=== PATIENT | female | born 1960 | race Caucasian/White ===

== ENCOUNTER 2017-02-01 08:23 | Emergency (ER) | payer OTHER ==
[2017-02-01 08:48] VITALS: BP 158/93
--- NOTE | 2017-02-01 09:45 | UC ---
Lower Extremity/Ankle HPI - HPI Summary HPI Summary: 3 WEEKS OF RIGHT CALF PAIN AND POSTERIOR RIGHT KNEE PAIN. FEELS LIKE THERE IS A "KNOT" THERE. LEG FEELS SWOLLEN. SAW DR. AVELAR AND GIVEN NAPROXEN WHICH IRRITATED HER STOMACH. HAS BEEN ICING AND ELEVATING WITH NO RELIEF. IS GOING TO BE SCHEDULED FOR A PARTIAL RIGHT KNEE REPLACEMENT SOON [employer] APPROVES IT, BUT THIS PAIN IS DIFFERENT. DENIES ANY RECENT TRAVEL, SURGERY OR HOSPITALIZATIONS. NO PERSONAL OR FAM HX OF BLOOD CLOT. - History of Current Complaint Chief Complaint: UCLowerExtremity Stated Complaint: LEG COMPLAINT Time Seen by Provider: 02/01/17 09:18 Hx Obtained From: Patient Onset/Duration: Gradual Onset, Lasting Weeks, Still Present Severity Initially: Moderate Severity Currently: Moderate Pain Intensity: 7 Pain Scale Used: 0-10 Numeric Aggravating Factor(s): Standing, Ambulation Alleviating Factor(s): Nothing Able to Bear Weight: Yes - Allergies/Home Medications Allergies/Adverse Reactions: Allergies Allergy/AdvReac Type Severity Reaction Status Date / Time Penicillin G Allergy Unknown Rash Verified 02/01/17 08:40 ENVIRONMENTAL/SEASONAL Allergy Congestion Uncoded 02/01/17 08:40 ALLERGIES PMH/Surg Hx/FS Hx/Imm Hx Previously Healthy: Yes - Surgical History Surgical History: Yes Surgery Procedure, Year, and Place: 2011 RIGHT CARPAL TUNNEL RELEASE, [facility]. LEFT [place] [facility] [place] TORN MENISCUS [place]PAIR[place] [facility] [place]. 05/2015 LEFT HAND CARPAL TUNNEL RELEASE, [facility] - Family History Known Family History: Positive: Hypertension - Social History Alcohol Use: None Substance Use Type: None Smoking Status (MU): Never Smoked Tobacco Have You Smoked in the Last Year: No Review of Systems Constitutional: Negative Skin: Negative Respiratory: Negative Cardiovascular: Negative Gastrointestinal: Negative Musculoskeletal: Calf Tenderness All Other Systems Reviewed And Are Negative: Yes Physical Exam Triage Information Reviewed: Yes Appearance: Well-Appearing, No Pain Distress, Well-Nourished Vital Signs: Initial Vital Signs Temp 99.7 F 02/01/17 08:41 Pulse 98 02/01/17 08:41 Resp 18 02/01/17 08:41 BP 158/93 02/01/17 08:41 Pulse Ox 100 02/01/17 08:41 Vital Signs Reviewed: Yes Eyes: Positive: Conjunctiva Clear ENT: Positive: Hearing grossly normal Neck: Positive: Supple Respiratory: Positive: No respiratory distress, No accessory muscle use Cardiovascular: Positive: Pulses Normal Abdomen Description: Positive: Soft Musculoskeletal: Positive: ROM Intact, No Edema, Other: - MILD RIGHT CALF TENDERNESS. NEG HOMANS. CALF CIRCUMFERENCE 47.5CM RIGHT CALF, 46CM LEFT CALF Neurological: Positive: Alert Psychological: Positive: Age Appropriate Behavior Skin: Negative: rashes Diagnostics - Radiology RLE US Xray Interpretation: No Acute Changes Radiology Interpretation Completed By: Radiologist Lower Extremity Course/Dx - Differential Dx/Diagnosis Provider Diagnoses: RIGHT LEG PAIN Discharge - Discharge Plan Condition: Stable Disposition: HOME Patient Education Materials: Leg Pain (ED) Referrals: France Tucker MD [Primary Care Provider] - If Needed Additional Instructions: NO BLOOD CLOT OR BAKERS CYST SEEN ON ULTRASOUND TODAY. UNCLEAR ETIOLOGY OF YOUR DISCOMFORT. TAKE OTC NSAIDS NEEDED FOR PAIN. KEEP YOUR ORTHO FOLLOW-UP. Leg pain, non-specific: We did not find a specific cause for your leg pain. But there's no sign of a serious problem at this time. Often the cause of the pain becomes obvious with time, or the pain simply goes away. The most common causes of unexplained leg pain are: Muscle irritation. Muscle fatigue, overuse, pressure on the muscle from sitting or lying in one position, or immune reaction to muscle tissue can cause pain. Cholesterol-lowering drugs (statins) can inflame muscles. Dehydration or mineral deficits: Low levels of potassium, salt, calcium, or magnesium can cause cramps or leg muscle pain. Diuretics (water pills) can cause this. Subtle injury. Strains or bruises that were so minor they weren't noticed can cause pain a day or two later. A "stress fracture" of a leg bone can be caused by overuse. "Anderson splints" is pain in the front of the lower leg caused by overuse or hard running. Nerve pain. Leg pain can be caused by disc disease in the back (sciatica or "pinched nerve") or by damage to nerves by diabetes, alcohol abuse, smoking, or vitamin deficiency. A bruise or pressure on a nerve can cause pain. Tendonitis. Inflammation of a tendon can cause leg pain. Sometimes it's not obvious which tendon is responsible. Varicose veins and post-phlebitic syndrome. Abnormal veins sometimes cause widespread leg aching, particularly after being up on your feet all day. Arthritis. Sometimes the pain of an inflamed joint is felt through a wide area. Restless legs. This is an uncomfortable tightness that builds in the legs, making you want to move them. Sometimes it's caused by medication. Blood clots. We found no sign of blood clots during your evaluation today. Clots in tiny veins may cause pain but be non-detectable. Vascular disease. Narrowed arteries can make your muscles run short of oxygen, causing pain with walking. Other serious causes but more rare causes of leg pain include infection, tumors, and bone degeneration. Rest as much as possible. Elevate your leg while resting. Gently stretch your leg muscles four times a day. Use [id number] pain medicine like acetaminophen or ibuprofen. Gentle compression like support hose or elastic bandages might help. Warm up your leg muscles before physical activity. Carefully control any underlying health problems such as diabetes, high blood pressure, heart failure, gout, or arthritis. Eliminate alcohol and tobacco. See the doctor if you have significant changes, such as swelling, redness, fever, increasing pain, numbness, or discoloration. IBUPROFEN MAX DOSE: 600MG (3 TABS) EVERY 6 HRS OR 800MG (4 TABS) EVERY 8 HRS TYLENOL MAX DOSE: 1000MG (2 EXTRA STRENGTH TABS) EVERY 8 HRS
--- NOTE | 2017-02-01 10:18 | RAD ---
Indication: Right leg edema. Duplex Doppler sonography of the deep venous system of the right lower extremity deep venous system was performed. Bilaterally the common femoral veins appear patent and compressible. Right proximal greater saphenous vein, proximal deep femoral vein, femoral vein, popliteal vein, posterior tibial veins and peroneal veins appear patent and compressible. IMPRESSION: NO EVIDENCE OF DEEP VENOUS THROMBOSIS IS IDENTIFIED.
== END 2017-02-01 11:07 | disposition home or self-care (01) ==
LOC: UCEAST 08:23
DX: M79.604 Pain in right leg (principal); Z88.0 Allergy status to penicillin
CPT/HCPCS: 99211; G0463

== ENCOUNTER 2017-04-01 00:50 | Inpatient (IN) | payer OTHER ==
--- OUTSIDE RECORDS SUMMARY | 2017-07-29 05:56 | XMS REPORT ---
:1960 External Reference #:[id number] Author Organization [facility] Address [address] [address] Phone [phone] Care Team Providers Name Role Phone France Valadez MD Primary Care Physician Unavailable Payers Type Date Identification Numbers Payment Provider Subscriber Commercial Effective: Policy Number: [id number] [employer] Laura Banks 2014 Group Number: [id number] [address] PayID: [id number] [place] [address] Workers Effective: Policy Number: Julian Sanchez Compensation 2016 [id number] Xi Banks Onset: 2012 Group Name: Franky [phone] [address] PayID: [place] [address] Workers Expires: Policy Number: Julian Laura Compensation 2016 [id number] Xi Banks Onset: 2012 PayID: MARGA [address] [place] [address] Problems Date Description Provider Status Onset: 12/20/2014 Localized, primary osteoarthritis Snehal Tapia M.D. Active Onset: 02/17/2015 Snapping thumb syndrome Blessing Beckett M.D. Active Onset: 02/17/2015 Carpal tunnel syndrome of left wrist Blessing Beckett M.D. Active Onset: 11/23/2016 Osteochondritis dissecans Adrian Smith M.D. Active Family History Date Family Member(s) Problem(s) Comments General heart disease General diabetes General cancer Father Chronic Obstructive Pulmonary Disease (COPD) Father due to RI () Father due to COPD () Mother Breast Cancer Mother due to Heart Disease () Mother Bladder Cancer Mother Skin Cancer Mother Stroke Mother Heart Disease Siblings 5 1 brother 2 living sisters and 2 sisters. Brother has COPD Social History Type Date Description Comments Marital Status Single Lives With Alone Occupation lottery office manager Cigarette Use Never Smoked Cigarettes ETOH Use Denies alcohol use Smoking Patient has never smoked Recreational Drug Use Denies Drug Use Daily Caffeine Soda 2-3 can per week Daily Caffeine Regular Coffee x1 week iced or hot Exercise Type/Frequency Exercises rarely General Hx Text Do you follow special diet: no regular diet Do you have problems with snoring, daytime fatigue: yes occasional snoring, no daytime fatigue. Allergies, Adverse Reactions, Alerts Date Description Reaction Status Severity Comments 11/25/2012 Penicillin rash active Medications Medication Date Status Form Strength Qnty SIG Indications Ordering Provider Naproxen 09/23 Active Tablets 500mg 60tab 1 by M17.11 s mouth Luis, twice a M.D. day as needed Soolantra Active Cream 1% applied Unknown /0000 to face daily Prilosec OTC Active Tablets 20mg 1 by Unknown /0000 DR sophia every day prn ( started on and off for years) Naprosyn 07/27 Hx Tablets 500mg 60tab 1 tab po s bid prn Sophy, - pain M.D. 03/06 Ultracet 05/12 Hx Tablets 37.5-325m 30tab 1-2 tabs g s by mouth Sophy, - every 4-6 M.D. 03/06 hours needed pain Methylprednisolone 08/19 Hx Tablets 4mg 1pack take as Guy () directed Jeffrey, - M.D. 03/06 Naproxen 01/07 Hx Tablets 500mg 60tab 1 by Guy s mouth Jeffrey, - twice a M.D. 09/23 day needed Tramadol HCL 01/07 Hx Tablets 50mg 30tab 1-2 tabs s by mouth Jeffrey, - tid as M.D. 03/06 pain Dexalant 07/07 Hx Guy Patricia Murphy M.D. 03/06 Percocet 07/07 Hx Tablets 5-325mg 60tab take 1-2 s tabs po Jeffrey, - q4-6 M.DdArianna 06/24 hours pr pain Finacea Hx Unknown /0000 - 11/19 Qvar Hx Unknown /0000 - 03/06 Nasonex Hx Unknown /0000 - 03/06 Omeprazole Hx As Unknown /0000 Directed - 03/20 Medications Administered in Office Medication Date Status Form Strength Qnty SIG Indications Ordering Provider Technetium TC Administered Injection Jamila Banks, 99M 017 PA Tetrofosmin, Per Unit Dose Up To 40 Millicuries Inj, Administered Injection Eric Santos Regadenoson, 017 David Islas 0.1 MG Technetium TC Administered Injection Eric Santos 99M 017 David Islas Tetrofosmin, Per Unit Dose Up To 40 Millicuries Depomedrol Administered Injection Blessing 80MG Dante Beckett M.D. Synvisc Or Administered Injection Snehal Synvisc-One Dante Tapia M.D. Injection 1 MG Synvisc Or Administered Injection Snehal Synvisc-One Dante Tapia M.D. Injection 1 MG Synvisc Or Administered Injection Snehal Synvisc-One Dante Tapia M.D. Injection 1 MG Depomedrol Administered Injection Blessing 80MG Dante Beckett M.D. Depomedrol Administered Injection Blessing 80MG Suzanne Beckett M.D. Depomedrol Administered Injection Guy 80MG Suzanne Murphy M.D. Depomedrol Administered Injection Blessing 80MG Suzanne Beckett M.D. Vital Signs Date Vital Result Comment 07/10/2017 Height 62 inches 5'2" Heart Rate 83 /min BP Systolic 142 mmHg BP Diastolic 90 mmHg Respiratory Rate 16 /min Body Temperature 98.8 F Pain Level 2 06/24/2017 Height 62 inches 5'2" Weight 230.00 lb Heart Rate 88 /min BP Systolic Sitting 110 mmHg BP Diastolic Sitting 82 mmHg Respiratory Rate 14 /min O2 % BldC Oximetry 95 % BMI (Body Mass Index) 42.1 kg/m2 Neck Circumference in inches 14.5 05/16/2017 Height 62 inches 5'2" Weight 239.00 lb with shoes Heart Rate 72 /min BP Systolic Sitting 140 mmHg LA, large BP Diastolic Sitting 84 mmHg LA, large BMI (Body Mass Index) 43.7 kg/m2 Ejection Fraction 50%-55% 04/30/17 echo 03/21/2017 Height 62 inches 5'2" Weight 237.31 lb with shoes Heart Rate 116 /min stand and lying 100 reg with ectopy BP Systolic 120 mmHg Rue lg cuff BP Diastolic 90 mmHg Rue lg cuff BP Systolic Sitting 132 mmHg Lue lg cuff BP Diastolic Sitting 90 mmHg Lue lg cuff BP Systolic Standing 134 mmHg Lue lg cuff BP Diastolic Standing 90 mmHg Lue lg cuff Respiratory Rate 17 /min O2 % BldC Oximetry 94 % at room air BMI (Body Mass Index) 43.4 kg/m2 03/20/2017 Height 62 inches 5'2" Weight 239.00 lb Heart Rate 120 /min BP Systolic 140 mmHg BP Diastolic 96 mmHg Body Temperature 97.4 F Pain Level 5 BMI (Body Mass Index) 43.7 kg/m2 01/15/2017 Height 62 inches 5'2" Weight 230.00 lb Heart Rate 76 /min BP Systolic Recheck 132 mmHg BP Diastolic Recheck 88 mmHg Respiratory Rate 16 /min Body Temperature 98.0 F BMI (Body Mass Index) 42.1 kg/m2 12/20/2016 Height 62 inches 5'2" Weight 230.00 lb Heart Rate 76 /min BP Systolic Recheck 130 mmHg BP Diastolic Recheck 86 mmHg Respiratory Rate 16 /min Body Temperature 97.8 F BMI (Body Mass Index) 42.1 kg/m2 11/23/2016 Height 62 inches 5'2" Weight 230.00 lb Heart Rate 76 /min BP Systolic Recheck 128 mmHg BP Diastolic Recheck 84 mmHg Respiratory Rate 16 /min Body Temperature 97.9 F BMI (Body Mass Index) 42.1 kg/m2 03/07/2016 Heart Rate 98 /min BP Systolic 151 mmHg BP Diastolic 77 mmHg Pain Level 2 06/27/2015 Height 64 inches 5'4" Weight 230.00 lb BMI (Body Mass Index) 39.5 kg/m2 05/30/2015 Height 64 inches 5'4" Weight 230.00 lb Body Temperature 98.6 F Pain Level 0 BMI (Body Mass Index) 39.5 kg/m2 05/12/2015 Height 64 inches 5'4" Weight 230.00 lb Heart Rate 88 /min BP Systolic Sitting 146 mmHg BP Diastolic Sitting 83 mmHg Body Temperature 98.9 F BMI (Body Mass Index) 39.5 kg/m2 02/17/2015 Height 64 inches 5'4" Weight 230.00 lb Pain Level 1 BMI (Body Mass Index) 39.5 kg/m2 12/27/2014 Height 64 inches 5'4" Weight 230.00 lb Pain Level 6 BMI (Body Mass Index) 39.5 kg/m2 12/20/2014 Height 64 inches 5'4" Weight 230.00 lb Pain Level 4 BMI (Body Mass Index) 39.5 kg/m2 12/13/2014 Height 64 inches 5'4" Weight 230.00 lb Heart Rate 116 /min BP Systolic 136 mmHg BP Diastolic 79 mmHg Pain Level 6 BMI (Body Mass Index) 39.5 kg/m2 09/23/2014 Height 64 inches 5'4" Weight 230.00 lb Pain Level 10 BMI (Body Mass Index) 39.5 kg/m2 09/23/2014 Height 64 inches 5'4" Weight 230.00 lb Heart Rate 101 /min BP Systolic 145 mmHg BP Diastolic 92 mmHg Pain Level 7 BMI (Body Mass Index) 39.5 kg/m2 09/02/2014 Height 64 inches 5'4" Body Temperature 98.6 F Pain Level 6 08/19/2014 Height 64 inches 5'4" Weight 230.00 lb Body Temperature 98.5 F Pain Level 10 BMI (Body Mass Index) 39.5 kg/m2 07/12/2014 Height 64 inches 5'4" Weight 230.00 lb Pain Level 7 BMI (Body Mass Index) 39.5 kg/m2 04/12/2014 Height 64 inches 5'4" Weight 230.00 lb BP Systolic 124 mmHg BP Diastolic 101 mmHg BMI (Body Mass Index) 39.5 kg/m2 03/25/2014 Height 64 inches 5'4" Heart Rate 87 /min BP Systolic 156 mmHg BP Diastolic 86 mmHg 03/01/2014 Height 64 inches 5'4" Weight 230.00 lb Body Temperature 99.5 F BMI (Body Mass Index) 39.5 kg/m2 01/07/2014 Height 64 inches 5'4" Weight 230.00 lb Pain Level 7 BMI (Body Mass Index) 39.5 kg/m2 12/08/2013 Height 64 inches 5'4" Heart Rate 86 /min BP Systolic 140 mmHg BP Diastolic 90 mmHg 10/27/2013 Height 64 inches 5'4" Weight 230.00 lb Heart Rate 86 /min BP Systolic 144 mmHg BP Diastolic 100 mmHg BMI (Body Mass Index) 39.5 kg/m2 09/10/2013 Height 64 inches 5'4" Weight 230.00 lb Body Temperature 98.3 F BMI (Body Mass Index) 39.5 kg/m2 07/27/2013 Height 64 inches 5'4" Weight 230.00 lb Body Temperature 98.4 F BMI (Body Mass Index) 39.5 kg/m2 07/07/2013 Height 64 inches 5'4" Weight 230.00 lb Heart Rate 85 /min BP Systolic 161 mmHg BP Diastolic 93 mmHg BMI (Body Mass Index) 39.5 kg/m2 11/25/2012 Height 64 inches 5'4" Weight 225.00 lb Heart Rate 96 /min BP Systolic 146 mmHg BP Diastolic 90 mmHg BMI (Body Mass Index) 38.6 kg/m2 Results Test Date Test Result H/L Range Note Urinalysis Profile 03/20/2017 Urine Color Yellow 1 Urine Appearance Clear 1 Urine Specific [place] 1.006 Low 1.010-1.030 1 Urine pH 6.0 5-9 1 Urine Urobilinogen Negative Negative 1 Urine Ketones Negative Negative 1 Urine Protein Negative Negative 1 Urine Leukocytes Trace Negative 1 Urine Blood Negative Negative 1 Urine Nitrite Negative Negative 1 Urine Bilirubin Negative Negative 1 Urine Glucose Negative Negative 1 Urine White Blood Cell Trace(0-5/hpf) Absent 1 Urine Red Blood Cell Trace(0-2/hpf) Absent 1 Urine Bacteria Absent Absent 1 Urine Squamous Epithelial Cell Present Absent 1 CBC No Diff 03/20/2017 White Blood Count 8.1 10^3/uL 3.5-10.8 1 Red Blood Count 5.20 10^6/uL 4.0-5.4 1 Hemoglobin 14.0 g/dL 12.0-16.0 1 Hematocrit 43 % 35-47 1 Mean Corpuscular Volume 84 fL 80-97 1 Mean Corpuscular Hemoglobin 27 pg 27-31 1 Mean Corpuscular HGB Conc 32 g/dL 31-36 1 Red Cell Distribution Width 14 % 10.5-15 1 Platelet Count 345 10^3/uL 150-450 1 Mean Platelet Volume 9 um3 7.4-10.4 1 Inr/Protime 03/20/2017 Inr 0.82 Low 0.89-1.11 1 Laboratory test finding 03/20/2017 Partial Thrombo 34.1 seconds 26.0- 36.3 1, 2 Time PTT Comp Metabolic Panel 03/20/2017 Sodium 135 mmol/L 133-145 1 Potassium 4.0 mmol/L 3.5-5.0 1 Chloride 98 mmol/L Low 101-111 1 Co2 Carbon Dioxide 29 mmol/L 22-32 1 Anion Gap 8 mmol/L 2-11 1 Glucose 104 mg/dL High 70-100 1 Blood Urea Nitrogen 10 mg/dL 6-24 1 Creatinine 0.81 mg/dL 0.51-0.95 1 BUN/Creatinine Ratio 12.3 8-20 1 Calcium 9.8 mg/dL 8.6-10.3 1 Total Protein 6.9 g/dL 6.4-8.9 1 Albumin 4.6 g/dL 3.2-5.2 1 Globulin 2.3 g/dL 2-4 1 Albumin/Globulin Ratio 2.0 1-3 1 Total Bilirubin 0.70 mg/dL 0.2-1.0 1 Alkaline Phosphatase 90 U/L 34-104 1 Alt 10 U/L 7-52 1 Ast 14 U/L 13-39 1 Egfr Non- 72.6 >60 1 Egfr 93.4 >60 1, 3 Type & Screen 03/20/2017 Patient Blood Type B Positive 1 Antibody Screen NEGATIVE 1 Urine Culture And 03/20/2017 Urine Culture SEE RESULT BELOW 1, 4 Sensitivities Surgical Pathology 07/17/2013 S RUN DATE: <SEE NOTE> 1 AA 04/01 2 AA 04/01 3 Because ethnic data is not always readily available, this report includes an eGFR for both -Americans and non- Americans. The National Kidney Disease Education Program (NKDEP) does not endorse the use of the MDRD equation for patients that are not between the ages of 18 and 70, are , have extremes of body size, muscle mass, or nutritional status, or are non- or non-. According to the National Kidney Foundation, irrespective of diagnosis, the stage of the disease is based on the level of kidney function: Stage Description GFR(mL/min/1.73 m(2)) 1 Kidney damage with normal or decreased GFR 90 2 Kidney damage with mild decrease in GFR 60-89 3 Moderate decrease in GFR 30-59 4 Severe decrease in GFR 15-29 5 Kidney failure <15 (or dialysis) 4 SEE RESULT BELOW Name: LAURA BANKS : [address]: Adrian Smith MD Acct: [id number] Unit: [id number] AGE: 56 Location: [facility] Re03/20/17 SEX: F Status: REG REF SPEC: [id number] RISHI: 03/20/17-1340 [facility] DR: Adrian Smith MD REQ: [id number] RECD: 03/20/17 STATUS: MORRIS JEFFERY DR: France Tucker MD _ SOURCE: URINE SPDESC: ORDERED: Urine Culture COMMENTS: TOÑO 04/01 QUERIES: Urine Source: Clean Catch Procedure Result Reported Site Urine Culture Final 03/21/17- 1259 ML No growth of clinically significant organisms * ML - MAIN LAB (PSC1) . END OF REPORT * ML=Testing performed at Main Lab DEPARTMENT OF PATHOLOGY, [facility] [employer] [place], [place] [address] Suresh Roberto M.D. Director [facility] # [id number] 5 RUN DATE: 07/20/13 [facility] LAB LIVE PAGE 1 RUN TIME: 9946 [facility] [employer] [place], [place] [address] Specimen Inquiry Name: LAURA BANKS : [address]: Guy Murphy MD Acct: [id number] Unit: [id number] AGE: 52 Location: OR Re07/17/13 SEX: F Status: REG SDC SPEC: [id number] RISHI: 07/17/13- SUBM DR: Guy Murphy MD REQ: [id number] RECD: 07/17/131143 STATUS: SOUT _ ORDERED: LEVEL III FINAL DIAGNOSIS Knee, right, shavings: A. Hyperplastic synovium with chronic inflammation and marked neovascularization and fibrosis. B. Fragments of fibrocartilage and articular cartilage with degenerative features. PRE-OPERATIVE DIAGNOSIS Right knee meniscus tear. GROSS DESCRIPTION The specimen is received in formalin labeled Laura Banks, Shavings Right Knee, and consists of a 3.0 x 2.2 x 0.6 cm. aggregate of yellow and white tissue fragments. Etiquette Teacher sections, one cassette. Signed (signature on file) Suresh Roberto MD 1525 END OF REPORT * ML=Testing performed at Main Lab DEPARTMENT OF PATHOLOGY, [address] [place] [address] Suresh Roberto M.D. Director [facility] Permit #[id number] Procedures Date CPT Code Description Status 06/24/2017 20002 Sleep Study Unattended,HRT Rate,Oxygen Sat,Resp Completed Effort/Airflow 04/30/2017 44239 ECHO Transthoracic, Real-Time 2D With Doppler And Color Completed Flow 04/30/2017 82908 ECHO Transthoracic, Real-Time 2D With Doppler And Color Completed Flow 04/19/2017 23044 Holter Monitor Review (24 hr)dr pastor & helio Completed only 04/18/2017 88958 ECG Monitor/Recording W/Visual Superimposition Scanning Completed 04/18/2017 47095 ECG Monitor/Recording W/Visual Superimposition Scanning Completed 04/04/2017 28218 Stress Test Completed 04/04/2017 85839 Myocardial Perfusion Imaging Tomographic (Spect) Completed Multiple Studies 03/21/2017 13204 EKG Tracing & Interpretation Completed 05/20/2015 01652 Carpal Tunnel Release Completed 05/20/2015 86509 Carpal Tunnel Release Completed 05/20/2015 35311 Trigger Finger Release Incision / Tendon Sheath Completed Incision 05/20/2015 59597 Trigger Finger Release Incision / Tendon Sheath Completed Incision 05/20/2015 50876 Trigger Finger Release Incision / Tendon Sheath Completed Incision 05/20/2015 25058 Trigger Finger Release Incision / Tendon Sheath Completed Incision 02/17/2015 58990 Inject Tendon Sheath Or Ligament Aponeurosis Eg Plantar Completed Fascia 12/27/2014 75280 Inject/Drain Joint/Bursa Major Completed 12/20/2014 34428 Inject/Drain Joint/Bursa Major Completed 12/13/2014 41404 Inject/Drain Joint/Bursa Major Completed 09/23/2014 44459 Inject Tendon Sheath Or Ligament Aponeurosis Eg Plantar Completed Fascia 03/25/2014 13038 Inject Tendon Sheath Or Ligament Aponeurosis Eg Plantar Completed Fascia 03/01/2014 71326 Xray Knee 3 Views Completed 03/01/2014 46864 Inject/Drain Joint/Bursa Major Completed 07/17/2013 47077 Arthroscopy,Knee,Meniscectomy Medial Or Lateral Completed 07/17/2013 35874 Arthroscopy,Knee,Meniscectomy Medial Or Lateral Completed 07/17/2013 62349 Arthroscopy,Knee,Meniscectomy Media & Lateral Completed 07/17/2013 04508 Arthroscopy,Knee,Meniscectomy Media & Lateral Completed 05/14/2013 20636 Inject Tendon Sheath Or Ligament Aponeurosis Eg Plantar Completed Fascia 11/25/2012 59627 Inject/Drain Joint/Bursa Major Completed 09/30/2012 22078 Xray Knee 3 Views Completed 09/30/2012 20666 Rad Exam; Knee, Ap&L Completed Encounters Type Date Location Provider CPT E/M Dx Office Visit 06/24/2017 [place] [address] R06.83 9:30a [facility] K21.9 R35.1 R40.0 E66.9 Z68.41 Office Visit 05/16/2017 10:00a [facility] Benjamin Tran 55047 R00.0 MJose E66.9 E78.2 R00.2 G47.33 Z01.810 Office Visit 03/21/2017 10:20a [facility] Of Benjamin Aguayo 87758 R94.31 [facility] David Tran E66.9 Z01.810 R60.9 R00.0 E78.2 Office Visit 01/15/2017 9:15a [facility] Adrian Smith 93236 M93.261 [facility] S80.11xS Office Visit 12/20/2016 9:45a [facility] Adrian Smith 91084 M93.261 [facility] Hernandez S80.11xS Office Visit 11/23/2016 10:00a [facility] Adrian Smith 13059 M93.261 Of [facility] Jf Almaraz M.D. S80.11xS Office Visit 03/07/2016 9:15a [facility] Snehal Tapia M.D. 39065 G56.02 Of [facility].AAdrianna Office Visit 02/17/2015 11:40a [facility] Blessing Beckett 56765 M65.312 Of C.Alyssa Hernandez G56.02 Office Visit 09/23/2014 11:20a [facility] Of Snehal Tapia M.D. 62475 715.16 C.MRoberto 719.46 715.16 Office Visit 09/02/2014 10:30a [facility] Of Guy Murphy M.D. 82295 732.7 C.M.AAdrianna Office Visit 08/19/2014 10:15a [facility] Of Guy Murphy M.D. 63279 732.7 C.M.A. Office Visit 07/12/2014 9:00a [facility] Of Guy Murphy M.D. 65215 719.46 C.M.A. Office Visit 04/12/2014 10:30a [facility] Of Gina Simon, 11883 924.10 C.M.Vidhya RPA-C 719.46 Office Visit 03/25/2014 11:00a [facility] Blessing Beckett, 85755 727.03 Of CEvelyn Hernandez Office Visit 03/01/2014 11:15a [facility] Guy Murphy M.D. 22290 924.10 Of C.Alyssa 719.46 Office Visit 01/07/2014 10:30a [facility] Alex Clements 69488 924.10 Of C.M.Reena Ribeiro Office Visit 12/08/2013 9:45a [facility] Guy Murphy M.D. 40196 924.10 Of C.M.AAdrianna Office Visit 10/27/2013 8:00a [facility] Guy Murphy M.D. 05325 719.46 Of C.M.A. Office Visit 05/14/2013 11:30a [facility] Blessing Beckett, 16272 727.03 Of CEvelyn Hernandez Office Visit 04/21/2013 11:15a [facility] Guy Murphy M.D. 93551 836.0 Of C.M.A. 732.7 Office Visit 12/23/2012 11:15a [facility] Of Guy Murphy M.D. 83617 836.0 C.M.A. 732.7 Office Visit 11/25/2012 8:30a [facility] Of Guy Murphy M.D. 47978 836.2 C.M.A. 836.0 732.7 Plan of Care Future Appointment(s):08/21/2017 8:30 am - Adrian Smith M.D. at [facility]07/29/2017 7:30 am - YUAN Guerrero at [facility]07/19/2017 11:30 am - Xiomara Muller DNP, RN, [employer] INST[employer]ER-BC at [facility]07/29/2017 7:30 am - Adrian Smith M.D. at [facility]07/10/2017 - Adrian Smith M.D.M17.11 Unilateral primary osteoarthritis, right kneeFollow up:Follow up: 1 month after surgery
[2017-07-29] MEDS ORDERED: Famotidine IV* 10 MG/ML 2 ML (20 mg) ONE (05:58)
[2017-07-29] MEDS ORDERED: Clindamycin 900 MG IVPREMIX(* 900 MG/50 ML SDV IV ONE (05:58)
[2017-07-29] MEDS ORDERED: Buffered Lidocaine 0.9% SYRIN* 5 ML/SYR SYRINGE ONE (05:58)
[2017-07-29] MEDS ORDERED: Buffered Lidocaine 0.9% SYRIN* 5 ML/SYR SYRINGE INTRADERM ONE (06:00)
[2017-07-29] MEDS ORDERED: Famotidine IV* 10 MG/ML 2 ML (20 mg) IV ONE (06:00)
[2017-07-29] MEDS ORDERED: Morphine INJ* 2 MG/ML 1 ML CARPUJECT IV PRN ×2 (06:10→09:51)
[2017-07-29] MEDS ORDERED: fentaNYL* 50 MCG/ML 2 ML VIAL (100 MCG VIAL) IV PRN (06:10)
[2017-07-29] MEDS ORDERED: Naloxone* 0.4 MG/ML 1 ML VIAL IV PRN (06:10)
[2017-07-29] MEDS ORDERED: Scopolamine 1.5 mg* PATCH TRANSDERM PRN (06:10)
[2017-07-29] MEDS ORDERED: PROCHLORPERAZINE INJ 5 MG/ML 2 ML VIAL IV PRN (06:10)
[2017-07-29] MEDS ORDERED: DiMENhydriNATE IV* 50 MG/ML VIAL IV PUSH PRN (06:10)
[2017-07-29] MEDS ORDERED: Gabapentin CAP(*) 300 MG PO ONE (06:12)
[2017-07-29] MEDS ORDERED: Gabapentin CAP(*) 300 MG ONE (06:18)
[2017-07-29] MEDS ORDERED: fentaNYL* 50 MCG/ML 2 ML VIAL (100 MCG VIAL) ONE (06:51)
[2017-07-29] MEDS ORDERED: Midazolam* 1 MG/ML 10 ML VIAL (10 MG) ONE (06:51)
[2017-07-29] MEDS ORDERED: Lidocaine 2% PF * 5 ML VIAL ONE (09:40)
[2017-07-29] MEDS ORDERED: Ondansetron INJ* 2 MG/ML VIAL ONE (09:40)
[2017-07-29] MEDS ORDERED: Phenylephrine INJ* 10 MG/ML 1 ML VIAL (10 MG) ONE (09:40)
[2017-07-29] MEDS ORDERED: Bupivacaine 0.5% SDV PF* 30ML VIAL ONE (09:40)
[2017-07-29] MEDS ORDERED: Ketorolac INJ* 30 MG/ML 1 ML VIAL ONE (09:40)
[2017-07-29] MEDS ORDERED: Propofol* 10 MG/ML 20 ML BTL IV PUSH ONE (09:40)
[2017-07-29] MEDS ORDERED: Dexamethasone IV* 4 MG/ML 1 ML (4 MG) ONE (09:40)
[2017-07-29] MEDS ORDERED: Bupivacaine 0.25% SDV* 30 ML ONE (09:40)
[2017-07-29] MEDS ORDERED: oxyCODONE TAB* 5 MG TAB PO PRN (09:51)
[2017-07-29] MEDS ORDERED: Bisacodyl SUPP* 10 MG SUPP PR PRN (09:51)
[2017-07-29] MEDS ORDERED: Cyclobenzaprine TAB* 10 MG PO PRN (09:51)
[2017-07-29] MEDS ORDERED: Magnesium Hydroxide LIQ* 30 ML UDC PO PRN (09:51)
[2017-07-29] MEDS ORDERED: Ondansetron INJ* 2 MG/ML VIAL IV PRN (09:51)
[2017-07-29] MEDS ORDERED: diPHENhydraMINE IV* 50 MG/ML 1 ml VIAL (BENADRYL) IV PRN (09:51)
[2017-07-29] MEDS ORDERED: Ondansetron TAB* 4 MG PO PRN (09:51)
[2017-07-29] MEDS ORDERED: Morphine INJ* 4 MG/ML 1 ML SYRINGE (NEW SYRINGE VERSION) IV PRN (09:51)
[2017-07-29] MEDS ORDERED: D5W 1/2 NS 1000 ML BAG* 1,000 ML IV SCH (10:00)
[2017-07-29] MEDS ORDERED: PROCHLORPERAZINE INJ 5 MG/ML 2 ML VIAL ONE (11:26)
[2017-07-29] MEDS ORDERED: Scopolamine 1.5 mg* PATCH ONE (11:26)
--- NOTE | 2017-07-29 12:02 | RAD ---
Indication: Immediate postop exam following medial joint compartment prosthesis placement due to OCD. Comparison: July 10, 2017 Technique: Portable AP and cross table lateral views LEFT knee. Report: Status post medial joint compartment prosthesis placement. Anterior cutaneous jim. Post-op fluid and gas is seen in the joint space and anterior subcutaneous tissues. Alignment is anatomic. No periprosthetic fracture evident. IMPRESSION: Unremarkable immediate postoperative appearance following LEFT knee medial joint compartment prosthesis placement.
--- NOTE | 2017-07-29 12:52 | OP ---
DATE OF OPERATION: 07/29/17 - ROOM #341 DATE OF : 56. ATTENDING SURGEON: Adrian Smith MD. PILOT PLANT SUPERVISOR: YUAN Rosenthal. ANESTHESIA: Regional/spinal/sedation. PRE-OP DIAGNOSIS: Osteochondral injury/defect right knee. POST-OP DIAGNOSES: 1. Osteochondral injury, right knee. 2. Osteoarthritis, right knee. OPERATIVE PROCEDURE: 1. Right knee medial compartment arthroplasty. 2. Patelloplasty. ESTIMATED BLOOD LOSS: Less than 25 cc. COMPLICATIONS: None. HARDWARE: [employer] D femur, #3 tibia, 8-mm polyethylene. SUMMARY: Ms. Ferreira is a 56-year-old female who was having trouble with her knee for some time. She had undergone a right knee arthroscopy in 2013, which had never had given her good lasting relief. At that time, she had a small osteo-chondral injury in which she had re-presented to the office at the end of 2016. I had gotten her set up with a repeat MRI, which had a shown the osteochondral defect had enlarged in size. It also could easily be visible on x -ray now. I discussed with her that a partial knee replacement should work well to decrease her pain and improve her function. Considering her work she has to be on her feet, my hope was that with a partial knee replacement she will be able to return to all activities without restriction. Risks of surgery such as infection, scar formation, stiffness, DVT, pulmonary embolism, and hardware failure, and continued pain were some of the risks that were discussed. She had been declared medically optimized and wished to proceed. DESCRIPTION OF PROCEDURE: The patient was brought to the OR after a block had been done in the holding area. Spinal anesthesia was introduced and a tourniquet was also placed over the proximal right thigh and was used during the case. Total tourniquet time would be approximately 65 minutes. Right knee was prepped and then draped. Esmarch was used to exsanguinate the leg and the tourniquet was raised. Midline incision was made beginning about where the patella was, carried down towards the tibial tubercle and carried upwards for about 8 cm as well. Incision was carried down through the skin and subcutaneous fat. Small bleeders encountered were ligated using electrocautery. Eventually, extensor mechanism was exposed and a sharp parapatellar arthrotomy was made. Clear yellow joint fluid was encountered. Care was taken with the arthrotomy not to plunge as I needed to protect the intracondylar area where the patella did track. The fat pad was mostly excised and soft tissues were sharply elevated from the medial side of the tibia with excision of the fat pad, it could be seen where she had very specific spurs on the inferior aspect of her patella and how these would impinge them. She did not have any exposed bone in the patellofemoral joint. A saw was used to perform a patelloplasty and take down the spurs along the inferior medial and inferior aspect of the patella so that like this it would not kiss right on the articular surface. Knee was pulse lavaged to clean this. Anterior meniscal horn was sharply excised to allow for better access, and with flexing up, nice exposure of the distal femur was obtained. At this point, patella laterally had a nice exposure. Drill was used to open the femoral canal and the intramedullary guide was placed and adjusted until it was parallel with the epicondylar access. This was then pinned into place and the distal femoral cutting guide was then dropped into place. The distal femoral cut was started, but because the pins came in, the guide had to be removed and the cut was finished freehand. Rongeur was used to remove some of the spurs she had right along side there as well and it appeared that the D did seat well. We were trying to pin that and place however I had difficulty seating that with tightness posteriorly and decision was made to resect the tibia to allow for easier placement of the cutting guide. Extramedullary guide was placed and adjusted until it we could take 2 mm from the one medial side. This was then pinned into place and final adjustment was made and then the cutting guide was pinned into place as well. Tibial cut was taken and it appeared a nice cut was obtained. Vertical piece was finished using the reciprocating saw and a slot was made for the trial implant. Attention was returned to the femur. A D seemed to sit nicely and this was pinned into place and the posterior cut and chamfer cut were then taken. Unfortunately, I forgotten to do the superior peg hole and later the guide will be replaced and I will cut my superior peg hole. Attention was turned to the tibia. Sizers were placed and it appeared the 3 sat perfectly. Trial was pinned into place and holes were drilled. D was then impacted into place and she was trialed with an 8 poly. She came out now into full extension quite nicely and easily flexed with no liftoff of the poly. It also did not appear that I had overstuffed the medial compartment. Trial instrumentation was removed and the knee was copiously pulse lavaged. Cement was being prepared. Tibia followed by femur were both cemented into place. Excess cement was removed and the cement was allowed to harden. Once the cement had hardened, knee was again searched for cement and a few small pieces were found. The knee was again pulse lavaged. I liked the stability and motion with a 8 and an 8 polyethylene was then snapped into place. The knee was again copiously pulse lavaged and parapatellar arthrotomy was repaired using interrupted #1 Vicryl sutures. Tourniquet was let down and no significant bleeding was encountered. Subcutaneous tissue was reapproximated in layers using 2-0 Vicryl. Skin was closed using jim. Sterile dressing and Cryo/cuff were applied in the OR. The patient was then awakened stable and transferred to the recovery room. [id number]/[facility] #: [id number] HUGH
[2017-07-29] MEDS: Clindamycin 600 MG IVPREMIX(* 600 MG/50 ML SDV IV SCH ×2 (15:18→23:26)
[2017-07-29] MEDS ORDERED: Warfarin TAB(*) 10 MG PO ONE (17:00)
[2017-07-29] MEDS: oxyCODONE/Acetamin 5/325 MG* TAB PO PRN ×2 (17:16→21:22)
[2017-07-29] MEDS ORDERED: Heparin VIAL(*) 5000 UNITS/ML VIAL (FIVE THOUSAND) SUBCUT SCH (21:00)
[2017-07-29] MEDS: Docusate CAP* 100 MG PO SCH (21:22)
[2017-07-29] MEDS: Magnesium Hydroxide LIQ* 30 ML UDC PO SCH (21:32)
[2017-07-29] MEDS: Nystatin CREAM* 15 GM TUBE TOPICAL SCH (21:32)
[2017-07-30] MEDS: oxyCODONE/Acetamin 5/325 MG* TAB PO PRN ×5 (03:47→23:41)
[2017-07-30 05:54] LABS: Hematocrit 41 % (35-47); Hemoglobin 13.2 g/dl (12.0-16.0); Mean Platelet Volume 8.4 um3 (7.4-10.4); Platelet Count 270 10^3/ul (150-450)
[2017-07-30 06:05] LABS: INR 0.95 (0.77-1.02)
[2017-07-30 06:19] LABS: EGFR Non-African American 88.9 (>60)
[2017-07-30] MEDS: Clindamycin 600 MG IVPREMIX(* 600 MG/50 ML SDV IV SCH (07:08)
[2017-07-30] MEDS: Omeprazole CAP* 20 MG PO SCH (07:08)
[2017-07-30] MEDS: IVERMECTIN TOPICAL SCH (08:32)
[2017-07-30] MEDS: Nystatin CREAM* 15 GM TUBE TOPICAL SCH ×2 (08:33→21:10)
[2017-07-30] MEDS: Docusate CAP* 100 MG PO SCH ×2 (08:33→19:19)
[2017-07-30] MEDS: Magnesium Hydroxide LIQ* 30 ML UDC PO SCH ×2 (08:45→21:03)
--- NOTE | 2017-07-30 10:05 | PN ---
Progress Note - Progress Note Date of Service: 07/30/17 SOAP: Subjective: []Patient seen OOB in chair. She has walked with physical therapy and knee pain is well controlled. She denies CP, SOB, nausea, fever, leg numbness. Objective: [] Vital Signs Temp 97.5 F 07/30/17 03:45 Pulse 74 07/30/17 07:24 Resp 16 07/30/17 09:40 BP 129/65 07/30/17 07:24 Pulse Ox 98 07/30/17 07:24 Intake & Output 07/29/17 07/30/17 07/30/17 18:59 06:59 18:59 Intake Total 3180 2386 225 Output Total 1425 1600 Balance 1755 786 225 Intake: IV Fluids 2850 1036 900MG CLINDAMYCIN 50 ABX - CLINDAMYCIN 55 D5W / NS 981 LR 2800 Oral 330 1350 225 Output: Urine 250 Bustos 975 1600 Estimated Blood Loss 200 Laboratory Last Values Hgb 13.2 g/dl (12.0-16.0) 07/30/17 05:30 Hct 41 % (35-47) 07/30/17 05:30 Plt Count 270 10^3/ul (150-450) 07/30/17 05:30 MPV 8.4 um3 (7.4-10.4) 07/30/17 05:30 INR (Anticoag Therapy) 0.95 (0.77-1.02) 07/30/17 05:30 Sodium 138 mmol/L (133-145) 07/30/17 05:30 Potassium 4.4 mmol/L (3.5-5.0) 07/30/17 05:30 Chloride 103 mmol/L (101-111) 07/30/17 05:30 Carbon Dioxide 29 mmol/L (22-32) 07/30/17 05:30 Anion Gap 6 mmol/L (2-11) 07/30/17 05:30 BUN 7 mg/dL (6-24) 07/30/17 05:30 Creatinine 0.68 mg/dL (0.51-0.95) 07/30/17 05:30 Est GFR ( Amer) 114.3 (>60) 07/30/17 05:30 Est GFR (Non-Af Amer) 88.9 (>60) 07/30/17 05:30 BUN/Creatinine Ratio 10.3 (8-20) 07/30/17 05:30 Glucose 137 mg/dL (70-100) H 07/30/17 05:30 Calcium 9.1 mg/dL (8.6-10.3) 07/30/17 05:30 General: OOB in chair. Well appearing, NAD RLE: Dressing CDI. No drainage and no surrounding erythema. DF/PF intact. 1+ DP/ PT pulse. Sensation intact distally. Capillary refill less than two seconds distally. BL LE: Calves supple and nontender without erythema, edema or palpable cords. Assessment: []POD 1 sp right knee medial compartment arthroplasty. Plan: []WBAT PT /OT Heparin, coumadin 8 mg today Intended D/C tomorrow. Per pt request sent meds to [facility] today for pickup by family
[2017-07-30] MEDS: Heparin VIAL(*) 5000 UNITS/ML VIAL (FIVE THOUSAND) SUBCUT SCH ×2 (11:45→21:09)
[2017-07-30] MEDS ORDERED: Warfarin TAB(*) 4 MG PO ONE (17:00)
[2017-07-31 05:46] LABS: Hematocrit 37 % (35-47); Mean Platelet Volume 8.5 um3 (7.4-10.4); Platelet Count 265 10^3/ul (150-450)
[2017-07-31] MEDS: oxyCODONE/Acetamin 5/325 MG* TAB PO PRN ×2 (05:50→12:34)
[2017-07-31 05:53] LABS: INR 1.22 (0.77-1.02)
[2017-07-31] MEDS: Magnesium Hydroxide LIQ* 30 ML UDC PO SCH (08:20)
[2017-07-31] MEDS: Nystatin CREAM* 15 GM TUBE TOPICAL SCH (08:21)
[2017-07-31] MEDS: Docusate CAP* 100 MG PO SCH (08:25)
[2017-07-31] MEDS: Omeprazole CAP* 20 MG PO SCH (08:25)
[2017-07-31] MEDS: Heparin VIAL(*) 5000 UNITS/ML VIAL (FIVE THOUSAND) SUBCUT SCH (08:26)
[2017-07-31] MEDS: IVERMECTIN TOPICAL SCH (08:27)
--- NOTE | 2017-07-31 09:52 | PN ---
Progress Note - Progress Note Date of Service: 07/31/17 SOAP: Subjective: []Patient seen at bedside. She is ready for DC. Right knee pain is well controlled. Denies CP, fever, chills, SOB, nausea or leg numbness Objective: [] Vital Signs Temp 98.2 F 07/31/17 08:32 Pulse 90 07/31/17 08:32 Resp 16 07/31/17 08:32 BP 133/63 07/31/17 08:32 Pulse Ox 95 07/31/17 08:32 Intake & Output 07/30/17 07/31/17 07/31/17 18:59 06:59 18:59 Intake Total 810 400 Output Total 250 1400 300 Balance 560 -1000 -300 Intake: Oral 810 400 Output: Urine 250 1400 300 Laboratory Last Values Hgb 12.0 g/dl (12.0-16.0) 07/31/17 05:00 Hct 37 % (35-47) 07/31/17 05:00 Plt Count 265 10^3/ul (150-450) 07/31/17 05:00 MPV 8.5 um3 (7.4-10.4) 07/31/17 05:00 INR (Anticoag Therapy) 1.22 (0.77-1.02) H 07/31/17 05:00 Sodium 138 mmol/L (133-145) 07/30/17 05:30 Potassium 4.4 mmol/L (3.5-5.0) 07/30/17 05:30 Chloride 103 mmol/L (101-111) 07/30/17 05:30 Carbon Dioxide 29 mmol/L (22-32) 07/30/17 05:30 Anion Gap 6 mmol/L (2-11) 07/30/17 05:30 BUN 7 mg/dL (6-24) 07/30/17 05:30 Creatinine 0.68 mg/dL (0.51-0.95) 07/30/17 05:30 Est GFR ( Amer) 114.3 (>60) 07/30/17 05:30 Est GFR (Non-Af Amer) 88.9 (>60) 07/30/17 05:30 BUN/Creatinine Ratio 10.3 (8-20) 07/30/17 05:30 Glucose 137 mg/dL (70-100) H 07/30/17 05:30 Calcium 9.1 mg/dL (8.6-10.3) 07/30/17 05:30 General: OOB in chair. Well appearing, NAD RLE: Dressing changed, incision CDI with no drainage and no surrounding erythema. DF/PF intact. 1+ DP/PT pulse. Sensation intact distally. Capillary refill less than two seconds distally. BL LE: Calves supple and nontender without erythema, edema or palpable cords. Assessment: []POD 2 s/p right knee medial compartment arthroplasty. Plan: []WBAT PT /OT Heparin, coumadin 6 mg today DC today, meds already sent to [facility]
[2017-07-31 11:33] VITALS: BP 148/64
--- NOTE | 2017-07-31 23:49 | DS ---
DISCHARGE SUMMARY: DATE OF ADMISSION: 07/29/17 DATE OF DISCHARGE: 07/31/17 DATE OF OPERATION: 07/29/17 ATTENDING PROVIDER: Dr. Smith * (DICTATED BY YUAN BAH) PREOPERATIVE DIAGNOSIS: Osteochondral injury defect of the right knee. OPERATION PERFORMED: Patelloplasty, right knee medial compartment arthroplasty. HISTORY: Ms. Ferreira is a 56-year-old female, who was having trouble with her knee for sometime. She underwent right knee arthroscopy in 2013, which never gave her lasting relief. Repeat MRI showed osteochondral defect with enlarged size. The patient elected to undergo a right knee medial compartment arthroplasty and patelloplasty. HOSPITAL COURSE: Ms. Ferreira was admitted to [facility] on 07/29/17. She underwent a right knee medial compartment arthroplasty with patelloplasty without complications. Postop day 1, dressing clean, dry, and intact. No drainage. No surrounding erythema. Dorsiflexion and plantar flexion intact. 1 + dorsalis pedis and posterior tibial pulse. Sensation intact distally. Capillary refill less than 2 seconds distally. Calves were supple and nontender without erythema, edema, or palpable cords. Hemoglobin 13.2, hematocrit 41. INR 0.95. Postop day 2, the patient is well appearing, in no acute distress. Dressing changed. Incision clean, dry, and intact. Hemoglobin 12.0, hematocrit 37. INR 1.22. The patient was deemed to be medically and orthopedically stable for discharge home. Vital signs: Temperature 98.2, pulse 90, respiratory rate 16, oxygen saturation 95, blood pressure 133/63. MEDICATIONS: Resume home medications includin. Omeprazole 20 mg p.r.n. 2. Ivermectin 30 g cream 1 topical application q.a.m. 3. Discontinue naproxen. New home medications: 1. Docusate 100 mg p.o. b.i.d. 2. Percocet 5/325 mg 1 to 2 tabs every 4 to 6 hours p.r.n., max daily dose of 10. 3. Warfarin 2 mg tabs take 1 to 3 tabs depending on instructions based on INR draws. DISCHARGE INSTRUCTIONS: Weightbearing as tolerated. Okay to shower after third postop day. Do not submerge the wound. Visiting nurse to remove jim in 10 to 14 days as well as do INR, blood draws Mondays and . Coumadin dosing 6 mg on 07/31/17, recheck INR for further dosing, 08/01/17. Pain control with Percocet 5/325 one to two 2 tabs every 4 to 6 hours as needed for pain, not to repeat 10 tabs per day. Follow up with Dr. Smith within 4 weeks, call for an appointment. Medications have been sent to [facility] in [place] for pickup. YUAN BAH [id number]/[facility] #: [id number] HUGH
[2017-08-01] MEDS ORDERED: Scopolamine PATCH Remove* 1 NOTE MISC PATCH OFF ONE (06:11)
== END 2017-07-31 13:30 | disposition home health service (06) | DRG 302 ==
LOC: AA 07-29 05:50 → SSU 07-29 09:51
PROVIDERS: ADMIT Orthopaedic Surgery; ATTEND Orthopaedic Surgery
PROC: 0SRC0L9 Replacement of Right Knee Joint with Medial Unicondylar Synthetic Substitute, Cemented, Open Approach (ICD-10-PCS; principal; 2017-07-29 07:30)
DX: M21.861 Other specified acquired deformities of right lower leg (principal); Z68.41 Body mass index [BMI] 40.0-44.9, adult; M93.261 Osteochondritis dissecans, right knee; K21.9 Gastro-esophageal reflux disease without esophagitis; M65.319 Trigger thumb, unspecified thumb; G47.30 Sleep apnea, unspecified; E66.01 Morbid (severe) obesity due to excess calories; G56.02 Carpal tunnel syndrome, left upper limb; M17.11 Unilateral primary osteoarthritis, right knee; F41.9 Anxiety disorder, unspecified; I10 Essential (primary) hypertension; E78.00 Pure hypercholesterolemia, unspecified; L40.9 Psoriasis, unspecified; Z86.010 Personal history of colon polyps; Z82.3 Family history of stroke; Z82.5 Family history of asthma and other chronic lower respiratory diseases; Z80.3 Family history of malignant neoplasm of breast; Z88.0 Allergy status to penicillin; Z88.5 Allergy status to narcotic agent; Z82.49 Family history of ischemic heart disease and other diseases of the circulatory system; Z83.3 Family history of diabetes mellitus; Z80.9 Family history of malignant neoplasm, unspecified; Z80.52 Family history of malignant neoplasm of bladder; Z80.8 Family history of malignant neoplasm of other organs or systems
CPT/HCPCS: 36415; 80048; 85014; 85018; 85049; 85610; 88305; 88311; 94760; A9270-GY; C1776; J0780; J1100; J1644; J1885; J2250; J2405; J2704; J3010

== ENCOUNTER 2018-06-17 08:44 | Emergency (ER) | payer OTHER ==
--- NOTE | 2018-06-17 09:20 | UC ---
General HPI - HPI Summary HPI Summary: Pleasant 57 yo female c/o dizzy episodes since April. Describes as unsteady , spinning sensation, not alleviated with eyes closed. No fever / chills. Did slip and fall on the ice last month. (no loc, not presyncopal). No new palpitations / cp / sob. Last week did have some anxiety, not today. This am woke up approx 6am with dizziness / spinning. No recent cough / cold / gi issues. Unsure what position, time of day / week potentiates / alleviates. 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 No recent h/a, vis / aud issues. Does have popping / cracking in L ear when swallows. Feels ok now. - History of Current Complaint Chief Complaint: UCDizziness Stated Complaint: DIZZNIESS Time Seen by Provider: 06/17/18 09:19 Hx Obtained From: Patient Pain Intensity: 0 - Allergy/Home Medications Allergies/Adverse Reactions: Allergies Allergy/AdvReac Type Severity Reaction Status Date / Time Penicillins Allergy Hives Verified 06/17/18 08:59 PMH/Surg Hx/FS Hx/Imm Hx Previously Healthy: Yes - Surgical History Surgical History: Yes Surgery Procedure, Year, and Place: 2011 RIGHT CARPAL TUNNEL RELEASE, [facility]. LEFT HAND, GANGLON REMOVED, [facility]. 2013 RIGHT KNEE TORN MENISCUS REPAIR, [facility]. 05/2015 LEFT HAND CARPAL TUNNEL RELEASE, [facility] - Family History Known Family History: Positive: Hypertension - Social History Occupation: Employed Full-time Alcohol Use: None Substance Use Type: None Smoking Status (MU): Never Smoked Tobacco Have You Smoked in the Last Year: No - Immunization History Most Recent Influenza Vaccination: never Most Recent Pneumonia Vaccination: never Review of Systems All Other Systems Reviewed And Are Negative: Yes Constitutional: Positive: Negative Skin: Positive: Negative Eyes: Positive: Negative ENT: Positive: Other - see hpi Respiratory: Positive: Negative Cardiovascular: Positive: Other - see hpi Gastrointestinal: Positive: Negative Genitourinary: Positive: Negative Motor: Positive: Negative Neurovascular: Positive: Other - see hpi Musculoskeletal: Positive: Negative Neurological: Positive: Other - see hpi Physical Exam Triage Information Reviewed: Yes Appearance: Well-Appearing - sitting up, conversing easily, nad, Well-Nourished Vital Signs: Initial Vital Signs Temp 98.1 F 06/17/18 08:55 Pulse 88 06/17/18 08:55 Resp 18 06/17/18 08:55 BP 148/67 06/17/18 08:55 Pulse Ox 98 06/17/18 08:55 Vital Signs Reviewed: Yes Eye Exam: Normal ENT: Positive: TM dull, Other - TM's dull, vela, rtx'd (R>L) Neck exam: Normal - no carotid bruit appreciated Neck: Positive: Supple, Nontender, No Lymphadenopathy Respiratory Exam: Normal Respiratory: Positive: Chest non-tender, Lungs clear, Normal breath sounds, No respiratory distress, No accessory muscle use Cardiovascular Exam: Normal Cardiovascular: Positive: RRR, No Murmur, Pulses Normal, Brisk Capillary Refill Abdominal Exam: Normal Abdomen Description: Positive: Nontender Musculoskeletal Exam: Normal - moves x 4 ext's, gait steady, Other - + ble stigmata of venous insuff and mild edema Neurological Exam: Normal - nonfocal except c/o episodic vertigo, without kameron nystagmus Psychological Exam: Normal - conversing easily and appropriately Course/Dx - Course Course Of Treatment: Reviewed coa / tx plan. Questions as posed answered to the best of my ability. See avs instructions. I reviewed prior ancillaries ( [employer]). EKG today similar to 16 Jan 2011. SR at 82 bpm AK 124 QTc 451. Nonspec borderline T abnomalities, diffuse leads. Cardiac source considered, but doubt. More c/w vertigo ENT related. However, will check labs includ TSH. CHemicals at work a possibility, she reports that she will start wearing a mask at work. Serous otitis is present, this could be the culprit, but will f/ u pcp. BP reviewed with pt, and need for bp check and pcp eval. CT brain nad. - Diagnoses Provider Diagnosis: Dizzy, Serous otitis media, Vertigo Discharge - Sign-Out/Discharge Documenting (check all that apply): Patient Departure All imaging exams completed and their final reports reviewed: Yes - Discharge Plan Condition: Stable Disposition: HOME Prescriptions: Meclizine TAB* [Antivert 12.5 TAB*] 25 mg PO TID PRN #30 tab PRN Reason: Dizziness Ondansetron ODT TAB* [Zofran 4 MG Odt TAB*] 4 mg PO Q6H PRN #16 tab.odt PRN Reason: Nausea Patient Education Materials: Vertigo (ED), Dizziness (ED), Serous Otitis Media (ED) Forms: *Work Release Referrals: France Tucker MD [Primary Care Provider] - - Billing Disposition and Condition Condition: STABLE Disposition: Home
[2018-06-17 11:04] VITALS: BP 155/69
[2018-06-17 13:29] LABS: ABS Basophils 0 10^3/ul (0-0.2); ABS Eosinophils 0.1 10^3/ul (0-0.6); ABS Lymphocytes 1.6 10^3/ul (1.0-4.8); ABS Monocytes 0.4 10^3/ul (0-0.8); ABS Neutrophils 5.1 10^3/ul (1.5-7.7); ABS Nucleated RBC 0 10^3/ul; Eosinophil % 0.9 %; Hematocrit 45 % (35-47); Hemoglobin 14.7 g/dl (12.0-16.0); Lymphocyte % 22.2 %; Mean Corpuscular HGB Conc 33 g/dl (31-36); Mean Corpuscular Hemoglobin 28 pg (27-31); Mean Corpuscular Volume 84 fL (80-97); Mean Platelet Volume 8.7 fL (7.4-10.4); Nucleated Red Blood Cells % 0; Platelet Count 329 10^3/ul (150-450); Red Blood Count 5.34 10^6/ul (4.00-5.40); Red Cell Distribution Width 14 % (10.5-15); White Blood Count 7.3 10^3/ul (3.5-10.8)
[2018-06-17 13:44] LABS: Albumin 4.5 g/dL (3.2-5.2); Calcium 9.6 mg/dL (8.6-10.3); Potassium 4.3 mmol/L (3.5-5.0); Total Bilirubin 0.8 mg/dL (0.2-1.0)
[2018-06-17 13:50] LABS: Albumin/Globulin Ratio 1.8 (1-3); BUN/Creatinine Ratio 13.5 (8-20); EGFR African American 97.2 (>60); EGFR Non-African American 80.3 (>60); Globulin 2.5 g/dL (2-4)
[2018-06-17 13:51] LABS: TSH (Thyroid Stimulating Horm) 2.92 mcIU/mL (0.34-5.60)
== END 2018-06-17 11:15 | disposition home or self-care (01) ==
LOC: UCEAST 08:44
DX: R42 Dizziness and giddiness (principal); H66.90 Otitis media, unspecified, unspecified ear; Z88.0 Allergy status to penicillin
CPT/HCPCS: 36415; 70450; 80053; 83735; 84443; 85025; 99212; G0463

== ENCOUNTER 2018-10-22 07:13 | Emergency (ER) | payer OTHER ==
[2018-10-22 07:25] VITALS: BP 143/85
--- NOTE | 2018-10-22 07:51 | UC ---
Lower Extremity/Ankle HPI - HPI Summary HPI Summary: 58-year-old female comes in with a chief complaint of left leg pain. Patient's been having pain in the left knee and left calf for more than a week. Yesterday she was walking she felt something pop in the back of her knee and calf. Has pain with ambulation decreased pain with rest. No complaint of weakness or numbness. Patient does have a right knee replacement. No complaint of chest pain or shortness of breath. - History of Current Complaint Chief Complaint: UCLowerExtremity Stated Complaint: LEG PAIN LT Time Seen by Provider: 10/22/18 07:36 Pain Intensity: 9 - Allergies/Home Medications Allergies/Adverse Reactions: Allergies Allergy/AdvReac Type Severity Reaction Status Date / Time Penicillins Allergy Hives Verified 10/22/18 07:25 Home Medications: Home Medications Ibuprofen 400 mg PO ONCE PRN 10/22/18 [History Confirmed 10/22/18] PMH/Surg Hx/FS Hx/Imm Hx Previously Healthy: Yes GI/ History: Gastroesophageal Reflux - Surgical History Surgical History: Yes Surgery Procedure, Year, and Place: 2011 RIGHT CARPAL TUNNEL RELEASE, [facility]. LEFT HAND, GANGLON REMOVED, [facility]. 2013 RIGHT KNEE TORN MENISCUS REPAIR, [facility]. 05/2015 LEFT HAND CARPAL TUNNEL RELEASE, [facility]. right knee replacement - Family History Known Family History: Positive: Hypertension - Social History Alcohol Use: None Substance Use Type: None Smoking Status (MU): Never Smoked Tobacco Have You Smoked in the Last Year: No - Immunization History Most Recent Influenza Vaccination: never Most Recent Pneumonia Vaccination: never Review of Systems All Other Systems Reviewed And Are Negative: Yes Constitutional: Positive: Negative Skin: Positive: Negative Eyes: Positive: Negative ENT: Positive: Negative Respiratory: Positive: Negative Cardiovascular: Positive: Negative Gastrointestinal: Positive: Negative Motor: Positive: Negative Neurovascular: Positive: Negative Musculoskeletal: Positive: Other: - SEE HPI Neurological: Positive: Negative Psychological: Positive: Negative Is Patient Immunocompromised?: No Physical Exam Triage Information Reviewed: Yes Appearance: Well-Appearing, No Pain Distress, Well-Nourished Vital Signs: Initial Vital Signs Temp 99.2 F 10/22/18 07:20 Pulse 87 10/22/18 07:20 Resp 18 10/22/18 07:20 BP 143/85 10/22/18 07:20 Pulse Ox 99 10/22/18 07:20 Vital Signs Reviewed: Yes Eye Exam: Normal Eyes: Positive: Conjunctiva Clear Neck: Positive: Supple Respiratory: Positive: No respiratory distress Musculoskeletal: Positive: Other: - Patient is tender to palpation tender to palpation left calf and left posterior knee. The knee has full range of motion. Patella is nontender nontender on the lateral aspects of the knee stable to exam. Minimal tenderness with Scooby's. Normal capillary refill normal sensation. Neurological: Positive: Alert, Muscle Tone Normal Psychological Exam: Normal Psychological: Positive: Age Appropriate Behavior Skin Exam: Normal Lower Extremity Course/Dx - Course Course Of Treatment: Patient Name: KATIE BANKS Medical Record#: [id number] Ordering Physician: Nelson Boothe MD Acct.#: [id number] : 1960 Age: 58 Sex: F Location: [facility] Exam Date: 10/22/18744 ADM Status: REG ER Order Information: KNEE LEFT 4+ VWS Accession Number: [id number] CPT: 47006 INDICATION: Left posterior knee pain. TECHNIQUE: 4 views of the left knee were obtained. FINDINGS: The bones are in normal alignment. No joint effusion or fracture is seen. Joint spaces appear maintained. IMPRESSION: NO EVIDENCE FOR FRACTURE. <Electronically signed by Javier Bianchi MD in OV> 10/22/18 0814 I discussed the x-ray and ultrasound report with the patient. No fracture DVT is seen. Ant wrap was placed by nursing the patient neurovascularly intact after placement of the Ant wrap. Patient has an appointment with orthopedics Dr. Avelar scheduled for November 12, 2018. As long she does not get any worse the plan is to follow-up at that time. If she does not improve or worsens she may need earlier reevaluation. I let her know that the normal ultrasound of her leg today did not show a DVT however if the swelling or pain continues or worsens she may need to re-ultrasound the leg to make sure there is no clot forming. - Differential Dx/Diagnosis Provider Diagnosis: Left knee pain, Pain of left calf Discharge - Sign-Out/Discharge Documenting (check all that apply): Patient Departure All imaging exams completed and their final reports reviewed: Yes - Discharge Plan Condition: Stable Disposition: HOME Patient Education Materials: Knee Pain (ED), Leg Pain (ED) Referrals: France Tucker MD [Primary Care Provider] - Adrian Avelar MD [Medical Doctor] - Additional Instructions: FOLLOW UP WITH DR AVELAR, ORTHOPEDICS, ON 11/12/18 SCHEDULED. GET RECHECKED SOONER IF YOUR CONDITION WORSENS; CONTINUED PAIN OR SWELLING, WORSE PAIN, CHEST PAIN, SHORTNESS OF BREATH OR ANY QUESTIONS OR CONCERNS. - Billing Disposition and Condition Condition: STABLE Disposition: Home
== END 2018-10-22 09:54 | disposition home or self-care (01) ==
LOC: UCEAST 07:13
DX: M79.662 Pain in left lower leg (principal); K21.9 Gastro-esophageal reflux disease without esophagitis; Z88.0 Allergy status to penicillin
CPT/HCPCS: 99212; G0463

== ENCOUNTER 2019-04-03 08:32 | Emergency (ER) | payer OTHER ==
[2019-04-03 08:44] VITALS: BP 170/94
[2019-04-03] MEDS ORDERED: Tetracaine 0.5% OPTH.SOL 4 ML* 1 DROP BTL LEFT EYE ONE (09:01)
[2019-04-03] MEDS ORDERED: Fluorescein Sodium TOPICAL* 1 MG TEST STRIP OPHTHALMIC ONE (09:01)
--- NOTE | 2019-04-03 09:03 | UC ---
Eye Complaint HPI - HPI Summary HPI Summary: 58-year-old female presents with complaints of left eye irritation and foreign body sensation that started last evening. States symptoms persisted throughout the night. Associated with some tearing. No known injury. No foreign body seen. Does not wear contacts. Denies visual disturbances, photophobia, purulent drainage, or crusting of the eye. - History of Current Complaint Chief Complaint: UCEye Stated Complaint: EYE COMPLAINT Time Seen by Provider: 04/03/19 08:36 Hx Obtained From: Patient Pain Intensity: 0 - Allergies/Home Medications Allergies/Adverse Reactions: Allergies Allergy/AdvReac Type Severity Reaction Status Date / Time Penicillins Allergy Hives Verified 10/22/18 07:25 PMH/Surg Hx/FS Hx/Imm Hx GI/ History: Gastroesophageal Reflux - Surgical History Surgical History: Yes Surgery Procedure, Year, and Place: 2011 RIGHT CARPAL TUNNEL RELEASE, [facility]. LEFT HAND, GANGLON REMOVED, [facility]. 2013 RIGHT KNEE TORN MENISCUS REPAIR, [facility]. 05/2015 LEFT HAND CARPAL TUNNEL RELEASE, [facility]. right knee replacement - Family History Known Family History: Positive: Hypertension - Social History Occupation: Employed Full-time Lives: With Family Alcohol Use: None Substance Use Type: None Smoking Status (MU): Never Smoked Tobacco Have You Smoked in the Last Year: No - Immunization History Most Recent Influenza Vaccination: never Most Recent Pneumonia Vaccination: never Review of Systems All Other Systems Reviewed And Are Negative: Yes Constitutional: Negative: Fever, Chills Eyes: Positive: Other - See HPI. Negative: Blurred Vision, Diplopia, Photophobia ENT: Negative: Sore Throat, Ear Ache, Nasal Discharge, Sinus Congestion, Sinus Pain/Tenderness Respiratory: Negative: Cough Cardiovascular: Positive: Negative Gastrointestinal: Positive: Negative Genitourinary: Positive: Negative Musculoskeletal: Positive: Negative Neurological: Positive: Negative Is Patient Immunocompromised?: No Physical Exam - Summary Physical Exam Summary: GENERAL APPEARANCE: Well developed, well nourished, alert and cooperative, and appears to be in no acute distress. EYES: Right conjunctiva clear. No drainage. Left conjuctiva with mild erythema and tearing. No gross FB noted. PERRL, EOM intact. Vision is grossly intact. Tetracaine and fluorosceine were instilled into the left eye and eye was examined under magnification with a Wood's lamp. No foreign body, corneal abrasion, or uptake of stain noted. Upper and lower lids were everted and no foreign body noted. CARDIAC: Normal S1 and S2. No S3, S4 or murmurs. Rhythm is regular. There is no peripheral edema, cyanosis or pallor. Extremities are warm and well perfused. Capillary refill is less than 2 seconds. Peripheral pulses intact. LUNGS: Clear to auscultation without rales, rhonchi, wheezing or diminished breath sounds. ABDOMEN: Positive bowel sounds. Soft, nondistended, nontender. No guarding or rebound. No masses or hepatosplenomegally. MUSKULOSKELETAL: ROM intact to all extremities. No joint erythema or tenderness. Normal muscular development. Normal gait. SKIN: Skin normal color, texture and turgor with no lesions or eruptions. Triage Information Reviewed: Yes Vital Signs: Initial Vital Signs Temp 99.2 F 04/03/19 08:36 Pulse 77 04/03/19 08:36 Resp 18 04/03/19 08:36 BP 170/94 04/03/19 08:36 Pulse Ox 98 04/03/19 08:36 Vital Signs Reviewed: Yes Eye Complaint Course/Dx - Course Course Of Treatment: 58-year-old female presents with complaints of left eye irritation and foreign body sensation that started last evening. States symptoms persisted throughout the night. Associated with some tearing. No known injury. No foreign body seen. Does not wear contacts. Denies visual disturbances, photophobia, purulent drainage, or crusting of the eye. Afebrile. Hypertensive otherwise vital signs stable. Exam revealed the following: Right conjunctiva clear. No drainage. Left conjuctiva with mild erythema and tearing. No gross FB noted. PERRL, EOM intact. Vision is grossly intact. Tetracaine and fluorosceine were instilled into the left eye and eye was examined under magnification with a Wood 's lamp. No foreign body, corneal abrasion, or uptake of stain noted. Upper and lower lids were everted and no foreign body noted. Reviewed findings with the patient. The left eye was irrigated by the RN. Discussed with the patient that I'm unsure of the exact cause of her symptoms but will place her on an antibiotic eyedrop in case there may have been a small corneal abrasion that was just not seen. She is to start Polytrim ophthalmic 1 drop into the left eye 4 times a day for 5 days. She is to follow-up with ophthalmology within a day if symptoms do not improve. Anticipatory guidance and warning symptoms requiring immediate evaluation the emergency room were reviewed with patient. Verbalizes understanding and agrees with plan of care. - Differential Dx/Diagnosis Differential Diagnosis/HQI/PQRI: Conjunctivitis, Corneal Abrasion, Foreign Body Provider Diagnosis: Irritation of left eye Discharge ED - Sign-Out/Discharge Documenting (check all that apply): Patient Departure All imaging exams completed and their final reports reviewed: No Studies - Discharge Plan Condition: Stable Disposition: HOME Prescriptions: Polymyx/Trimethoprim OPTH* [Polytrim OPHTH*] 1 drop LEFT EYE QID 5 Days #1 btl Patient Education Materials: Eye Pain (ED) Referrals: France Tucker MD [Primary Care Provider] - Marko Mcintosh MD [Medical Doctor] - 1 Day Additional Instructions: I did not see any evidence of a foreign body or corneal abrasion on your exam today. I am unsure of the exact cause of the eye irritation however we did thoroughly irrigate the eye to remove any potential foreign body. Start Polytrim ophthalmic 1 drop into the left eye four times a day for 5 days. Follow up with ophthalmology in 1 day if symptoms persist. Seek immediate medical attention in the emergency room if you have worsening or persistent eye pain, visual disturbances, loss of vision, or any worsening of symptoms. - Billing Disposition and Condition Condition: STABLE Disposition: Home
[2019-04-03] MEDS ORDERED: Eye Irrigation Solution 30 ML BOTTLE LEFT EYE ONE (09:16)
== END 2019-04-03 09:35 | disposition home or self-care (01) ==
LOC: UCEAST 08:32
DX: H57.89 Other specified disorders of eye and adnexa (principal); I10 Essential (primary) hypertension; Z88.0 Allergy status to penicillin
CPT/HCPCS: 99213; A9270-GY; G0463

== ENCOUNTER 2023-06-21 00:43 | Inpatient (IN) ==
[2023-06-21] MEDS: Ondansetron 4 mg VIAL 2 MG/ML 2 ml VIAL IV ONE (01:35)
[2023-06-21 01:54] LABS: ABS Basophils 0.1 10^3/uL (0.0-0.1); ABS Lymphocytes 1.1 10^3/uL (1.0-4.8); ABS Monocytes 0.4 10^3/uL (0.0-0.9); ABS Neutrophils 7.9 10^3/uL (1.5-7.6); Eosinophil % 0.3 %; Hematocrit 42.9 % (35-45); Hemoglobin 14.4 g/dL (11.5-14.3); Lymphocyte % 11.5 %; Mean Corpuscular Hgb Conc 33.5 g/dL (31-36); Mean Corpuscular Volume 80.8 fL (80-97); Mean Platelet Volume 8.5 fL (7.5-11.2); Platelet Count 315 10^3/uL (150-450); Red Blood Count 5.31 10^6/uL (3.63-4.92); Red Cell Distribution Width 13.9 % (12-17); White Blood Count 9.5 10^3/uL (3.8-11.8)
[2023-06-21 02:04] LABS: Albumin 4.2 g/dL (3.2-5.2); Albumin/Globulin Ratio 1.6 (1-3); C Reactive Protein 8.51 mg/L (<8.01); Calcium 9.3 mg/dL (8.6-10.3); Creatinine, Serum 1.23 mg/dL (0.51-0.95); Globulin 2.7 g/dL (2-4); Total Protein 6.9 g/dL (6.4-8.9); eGFR CKD-EPI 49.1 (>60)
[2023-06-21] MEDS: NS 0.9% 1000 ml BAG 1,000 ML IV ONE (09:20)
[2023-06-21] MEDS ORDERED: Ondansetron 4 mg VIAL 2 MG/ML 2 ml VIAL IV PRN (10:25)
[2023-06-21] MEDS ORDERED: Morphine 2 MG/ML SYRINGE IV PRN (10:29)
[2023-06-21] MEDS ORDERED: Acetaminophen IV 1 GM/100ML 1,000 MG/100 ML BAG IV PRN (10:30)
[2023-06-21 10:43] LABS: Urine Appearance Clear; Urine Bilirubin Negative (Negative); Urine Blood 3+ (Negative); Urine Color Yellow; Urine Glucose Negative (Negative); Urine Ketones Trace (Negative); Urine Nitrite Negative (Negative); Urine Protein 2+ (>=100 mg/dL) (Negative); Urine Specific Gravity >1.050 (1.002-1.030); Urine Urobilinogen Negative (Negative)
[2023-06-21] MEDS: cefTRIAXone 1 gm/50 mL D5W 1 GM/50 ML BAG IV ONE (11:09)
[2023-06-21] MEDS ORDERED: Propofol 10 MG/ML 20 ML BTL ONE (11:19)
[2023-06-21] MEDS ORDERED: Lidocaine 2% PF 5 ML VIAL ONE (11:19)
[2023-06-21] MEDS ORDERED: fentaNYL 100 mcg/2 ml 50 MCG/ML VIAL ONE (11:19)
[2023-06-21] MEDS ORDERED: Midazolam 2 mg/2 ml VIAL 1 mg/ml 2 ml VIAL (2 mg) ONE (11:19)
[2023-06-21] MEDS: Pantoprazole VIAL 40 MG VIAL IV SCH (12:48)
[2023-06-21] MEDS: Lactated Ringers 1000 ml BAG 1,000 ML IV SCH (12:48)
[2023-06-21] MEDS ORDERED: Dexamethasone IV 4 MG/ML VIAL 1 ml VIAL ONE (14:30)
[2023-06-21] MEDS ORDERED: Ondansetron 4 mg VIAL 2 MG/ML 2 ml VIAL ONE (14:30)
[2023-06-21] MEDS ORDERED: Lidocaine 2% JELLY 6 ML Topical TOPICAL ONE (14:37)
[2023-06-21] MEDS ORDERED: Lidocaine 2% JELLY 10 ML JELLY ONE (14:37)
[2023-06-21] MEDS ORDERED: Naloxone 0.4 mg VIAL 0.4 mg/ml 1 ml VIAL IV PRN (14:38)
[2023-06-21] MEDS ORDERED: HYDROmorphone 1 MG/1 ML SYRINGE IV PRN (14:38)
[2023-06-21] MEDS ORDERED: Phenylephrine 40 mcg/mL 10mL (400mcg) SYRINGE ONE (14:47)
[2023-06-21] MEDS ORDERED: Iohexol 180 (CONTRAST) 10 ML SDV IV ONE (14:58)
[2023-06-21 16:51] VITALS: BP 157/87
[2023-06-21] MEDS ORDERED: EPINASTINE 0.05% BOTH EYES SCH (21:00)
== END 2023-06-21 17:00 | disposition home or self-care (01) | DRG 661 ==
LOC: ED 00:43 → EDHOLD 10:25 → SSU 12:18
PROVIDERS: ADMIT Hospitalist; ATTEND Hospitalist